=== PATIENT | female | born 1985 | race Two or more races ===

== ENCOUNTER 2017-01-15 17:22 | Emergency (ER) | payer MEDICAID ==
[~2017-01-15] VITALS: Wt 79.0 kg
[~2017-01-15 17:22] MED LIST: PRENAT PO
--- NOTE | 2017-01-15 19:12 | ERD ---
ER Documentation Chief Complaint Date/Time DATE: 01/15/17 TIME: 19:10 Chief Complaint SENT PER PMD DUE TO PELVIC WART EVAL, DENIES PAIN HPI Patient is a 31-year-old female here with who presents to the ED with treatment for her warts. Patient states that her primary care provider sent her here for wart surgery. Denies pain. Denies fever or chills. Patient is asymptomatic. Denies history of STDs in the past. Denies dysuria urgency. No complaints today. ROS All systems reviewed and are negative except as per history of present illness. Medications Home Meds Reported Medications Multivit/Min/Fol Ac/Iron/Pren* ( S*) 1 Tab Tab, 1 TAB PO DAILY, TAB 06/28/16 Allergies Allergies: Coded Allergies: No Known Drug Allergies (Verified Allergy, Unknown, 06/28/16) PMhx/Soc Medical and Surgical Hx: pt denies Medical Hx, pt denies Surgical Hx History of Surgery: No Anesthesia Reaction: No Hx Neurological Disorder: No Hx Respiratory Disorders: No Hx Cardiac Disorders: No Hx Psychiatric Problems: No Hx Miscellaneous Medical Probl: No Hx Alcohol Use: No Hx Substance Use: No Hx Tobacco Use: No Smoking Status: Never smoker FmHx Family History: No coronary disease, No diabetes, No other Physical Exam Vitals Vital Signs Date Time Temp Pulse Resp B/P Pulse Ox O2 Delivery O2 Flow Rate FiO2 01/15/17 17:38 97.0 71 16 131/67 98 Physical Exam GENERAL: Well-developed, well-nourished female. Appears in no acute distress. HEAD: Normocephalic, atraumatic. EYES: Pupils are equally reactive bilaterally. EOMs grossly intact. No conjunctival erythema. ENT: Moist mucous membranes. No uvula deviation. No kissing tonsils. No exudates. NECK: Supple. No lymphadenopathy or thyromegaly. No meningismus. negative kernig. negative brudinski. LUNG: Clear to auscultation bilaterally. No rhonchi, wheezing, rales or coarse breath sounds. HEART: Regular rate and rhythm. No murmurs, rubs or gallops. ABDOMEN: No scars, ecchymosis or rashes noted. Soft, nontender, and nondistended. Positive bowel sounds in all four quadrants. No rebound tenderness , no guarding. (-) McBurneys point tenderness. No CVA tenderness. No pelvic pain. small wart visualized on outer labia. No CMT. BACK: No midline tenderness. Extremities: Equal pulses bilaterally. No peripheral clubbing, cyanosis or edema. No unilateral leg swelling. NEUROLOGIC: Alert and oriented. Moving all four extremities. 5/5 strength in all extremities. Normal speech. Steady gait. SKIN: Normal color. Warm and dry. No rashes or lesions. Capillary refill < 2 seconds Procedures/MDM ER COURSE: I kept the patient and/or family informed of laboratory and diagnostic imaging results throughout the emergency room course. MEDICAL DECISION MAKING: This is a 31-year-old female who presents with genital wart treatment. Vital signs were reviewed. Patient is afebrile. Patient is not hypoxic. She is nontoxic or ill-appearing. I explained to patient that no treatment for her warts will be done here in the ED and patient is a follow-up with gynecology as stated on the note that patient had with her. Patient states that she does not have a draw hand. Low suspicion for ovarian torsion, PID, tuboovarian abscess, ectopic , bowel obstruction, pyelonephritis, UTI, appendicitis , cervicitis, septic , molar , HELLP syndrome, preeclampsia, eclampsia, placenta previa, placenta abruptia. DISCHARGE: At this time, patient is stable for discharge and outpatient management with no new complaints during the ER course. Patient was sent home with list of gynecologists in the area. Patient will be discharged home with instructions to recheck for new or worsening symptoms such as fever, nausea, weakness, LOC and to follow up with primary care in the next 1-2 days. Patient was advised to return to the ER for any new or worsening symptoms. Plan was discussed and patient and/or family understands and agrees. Home instructions were given. Departure Diagnosis: Primary Impression: Warts, genital Condition: Stable Patient Instructions: Warts, Genital Referrals: [employer] DEPARTMENT MANAGER [place] [id number]AB[address]LEME [address] [address] DR[address] ADKINS, JOSE ENRIQUE [address] [place] [address] DR STERN, [facility] [id number] [facility], [address], [place] [address] DR KEBEDE-SHARMILA, [facility] [address] [facility], [place] [address] [facility] [address] [place] [address] [facility], [facility] [address] - DR SWANSON, BAKARI [address] [address] DR KENNEDY, NISHANT [address] [facility]. [address], [place] [address] DR FLANAGAN, FARID [address] [place], [place] [id number] Additional Instructions: Llame al doctor MAANA y loi samanta JUANITA PARA DENTRO DE 1-2 DUMONT.Dgale a la secretaria que nosotros le instruimos hacer esta juanita.Avise o llame si stratton condicin se empeora antes de la juanita. Regresa aqui si peor o no mejor. BREA AMOR PA-C Jan 15, 2017 19:12
== END 2017-01-15 19:11 | disposition home or self-care (01) ==
LOC: FTE 17:22
DX: A63.0 Anogenital (venereal) warts (principal)
CPT/HCPCS: 99282